=== PATIENT | male | born 1985 | race African-American/Black ===

== ENCOUNTER 2017-04-03 09:27 | Inpatient (IN) | payer OTHER ==
--- NOTE | 2017-04-03 12:11 | HP ---
Admission ROS [facility] Chief Complaint: REHAB TX FOR PCP AND ALCOHOL DEPENDENCE Allergies/Adverse Reactions: Allergies Allergy/AdvReac Type Severity Reaction Status Date / Time No Known Allergies Allergy Verified 04/03/17 11:31 History of Present Illness: 31 Y/O AA/MALE WITH A HX OF ALCOHOL AND PCP DEPENDENCE SEEKING REHAB TX. Exam Limitations: No Limitations - Ebola screening Have you traveled outside of the country in the last 21 days: No Have you had contact with anyone from an Ebola affected area: No Have you been sick,other than usual withdrawal symptoms: No Do you have a fever: No - Review of Systems Constitutional: No Symptoms Reported EENT: reports: Tearing, Nose Congestion Respiratory: reports: No Symptoms reported Cardiac: reports: No Symptoms Reported GI: reports: No Symptoms Reported : reports: No Symptoms Reported Musculoskeletal: reports: No Symptoms Reported Integumentary: reports: No Symptoms Reported Neuro: reports: Headache, Seizure (LAST EPISODE AT 9 YRS OLD.) Endocrine: reports: No Symptoms Reported Hematology: reports: No Symptoms Reported Psychiatric: reports: Orientated x3 Other Systems: Reviewed and Negative Patient History - Patient Medical History Hx Anemia: No Hx Asthma: No Hx Chronic Obstructive Pulmonary Disease (COPD): No Hx Cardiac Disorders: No Hx Hypertension: No Hx Hypercholesterolemia: No HX Cerebrovascular Accident: No Hx Seizures: Yes (as a child-last episode at age 9) Hx Diabetes: No Hx Gastrointestinal Disorders: No Hx Genitourinary Disorders: No Hx Sexually Transmitted Disorders: No Hx Renal Disease (ESRD): No Hx Thyroid Disease: No Hx Human Immunodeficiency Virus (HIV): No (NEGATIVE HX) Hx Hepatitis C: No Hx Depression: No Hx Suicide Attempt: No (DENIES) Hx Schizophrenia: No - Patient Surgical History Past Surgical History: No Hx Neurologic Surgery: No Hx Cataract Extraction: No Hx Cardiac Surgery: No Hx Lung Surgery: No Hx Breast Surgery: No Hx Breast Biopsy: No Hx Abdominal Surgery: No Hx Appendectomy: No Hx Cholecystectomy: No Hx Genitourinary Surgery: No Hx Orthopedic Surgery: No Anesthesia Reaction: No - PPD History Previous Implant?: Yes Documented Results: Negative w/o proof Implanted On Prior [facility] Admission?: No PPD to be Administered?: Yes - Reproductive History Patient is a Female of Child Bearing Age (11 -55 yrs old): No (MALE) - Smoking Cessation Smoking history: Current every day smoker Have you smoked in the past 12 months: Yes Aproximately how many cigarettes per day: 5 Hx Chewing Tobacco Use: No Initiated information on smoking cessation: Yes 'Breaking Loose' booklet given: 04/03/17 - Substance & Tx. History Hx Alcohol Use: Yes (BEER) Hx Substance Use: Yes (PCP) Substance Use Type: Alcohol Hx Substance Use Treatment: Yes ([facility]) - Substances Abused PCP Route: Smoking Frequency: 1-2 times per week Amount used: $20 Age of first use: 18 Date of Last Use: 03/25/17 Alcohol-beer Route: Oral Frequency: 1-2 times per week Amount used: 2 (24 oz.) Age of first use: 13 Date of Last Use: 03/27/17 Family Disease History - Family Disease History Family Disease History: Other: Father (HTN), Mother (LUPUS;PNEUMONIA-) Admission Physical Exam [facility] - Vital Signs Vital Signs: Vital Signs - 24 hr 04/03/17 04/03/17 10:11 11:26 Temperature 98.3 F 97.6 F Pulse Rate 108 H 62 Respiratory 18 20 Rate Blood Pressure 145/64 159/94 - Physical General Appearance: Yes: No Apparent Distress, Thin, Anxious HEENTM: Yes: EOMI, Normocephalic, ADRIEN, Pharynx Normal Respiratory: Yes: Chest Non-Tender, Lungs Clear, Normal Breath Sounds, No Respiratory Distress Neck: Yes: No masses,lesions,Nodules, Supple, Trachea in good position Breast: Yes: Breast Exam Deferred Cardiology: Yes: Regular Rhythm, S1, S2, Tachycardia Abdominal: Yes: Normal Bowel Sounds, Non Tender, Flat, Soft Genitourinary: Yes: Other (N/C) Back: Yes: Within Normal Limits Musculoskeletal: Yes: full range of Motion, Gait Steady Extremities: Yes: Normal Range of Motion, Non-Tender Neurological: Yes: psychic reader II-XII NML intact, Fully Oriented, Alert, Motor Strength 5/5 Integumentary: Yes: Dry, Warm Lymphatic: Yes: Within Normal Limits Cleared for Admission [facility] - Detox or Rehab Claeared for Rehab Admission: Yes [facility] Breath Alcohol Content Breath Alcohol Content: 0 Urine Pregancy Test - Result Urine Test Results: Negative- NO Line Present Urine Drug Screen - Results Drug Screen Negative: No Urine Drug Screen Results: THC-Marijuana, YANETH-Cocaine, OPI-Opiates, BZO- Benzodiazepines Inpatient Rehab Admission - Initial Determination Are CD services needed?: Yes Free of communicable disease: Yes Not in need of hospitalization: Yes - Rehab Admission Criteria Patient is meeting Inpatient Rehab admission criteria:: Yes
[2017-04-03] MEDS ORDERED: MAG HYDROX/AL HYDROX/SIMETH 30 ML UNIT-DOSE CUP PO PRN (12:12)
[2017-04-03] MEDS ORDERED: MENTHOL/PHENOL 1 EACH UD MM PRN (12:12)
[2017-04-03] MEDS ORDERED: ACETAMINOPHEN 325 MG TABLET (FP) PO PRN (12:12)
[2017-04-03] MEDS ORDERED: NICOTINE POLACRILEX 2 MG GUM BUC PRN (12:12)
[2017-04-03] MEDS ORDERED: IBUPROFEN 400 MG TABLET (FP) PO PRN (12:12)
[2017-04-03] MEDS ORDERED: MAGNESIUM HYDROX 2400MG/30ML ORAL SUSPENSION 30 ML CUP PO PRN (12:12)
[2017-04-03] MEDS ORDERED: guaiFENesin/D-METHORPHAN HB 10 ML UNIT-DOSE CUPS PO PRN (12:12)
[2017-04-03] MEDS ORDERED: MAGNESIUM CITRATE 300 ML BOTTLE PO PRN (12:12)
[2017-04-03] MEDS ORDERED: LOPERAMIDE HCL 2 MG CAPSULE PO PRN (12:12)
[2017-04-03] MEDS ORDERED: P-EPHED 60MG/TRIPROLIDI 2.5MG TABLET PO PRN (12:12)
[2017-04-03 12:13] VITALS: BMI 19.6
[2017-04-03 13:50] LABS: HEMATOCRIT 42.4 % (35.4-49); HEMOGLOBIN 13.6 GM/dL (11.7-16.9); MCH 30.4 pg (25.7-33.7); MEAN CELL VOLUME 95.1 fl (80-96); MEAN PLT VOLUME 7.6 fl (7.5-11.1); PLATELET COUNT 264 K/MM3 (134-434); RBC 4.46 M/mm3 (4.00-5.60); RDW 14.1 % (11.9-15.9); WHITE BLOOD COUNT 12.6 K/mm3 (4.0-10.0)
[2017-04-03 14:08] LABS: ALBUMIN 4.2 g/dl (3.4-5.0); ANION GAP 9 (8-16); BLOOD UREA NITROGEN 12 mg/dL (7-18); CHLORIDE 101 mmol/L (98-107); CO2 27 mmol/L (21-32); GLUCOSE,RANDOM 66 mg/dL (74-106); POTASSIUM 4.4 mmol/L (3.5-5.1); SODIUM 137 mmol/L (136-145)
[2017-04-03 14:17] LABS: ALK PHOS 94 U/L (45-117); BILIRUBIN,TOTAL 0.3 mg/dL (0.2-1.0); CREATININE 0.8 mg/dL (0.7-1.3); SGOT/AST 14 U/L (15-37); SGPT/ALT 20 U/L (12-78); TOT PROT 7.3 g/dl (6.4-8.2)
[2017-04-03 15:10] LABS: SICKLE CELL SCREEN NEGATIVE (NEGATIVE)
[2017-04-03] MEDS: NICOTINE 14 MG/24 HOURS TOPICAL PATCH TD SCH (19:51)
[2017-04-03] MEDS ORDERED: COLLOIDAL OATMEAL 1 BAR EACH TP PRN (20:27)
--- NOTE | 2017-04-03 20:28 | PN ---
[facility] Progress Note Note: RECEIVED NURSE CALL THAT THE PATIENT WANTS AVEENO SOAP
[2017-04-03 20:59] LABS: URINE APPEARANCE CLEAR; URINE BILIRUBIN NEGATIVE (NEGATIVE); URINE BLOOD NEGATIVE (NEGATIVE); URINE COLOR YELLOW; URINE GLUCOSE (UA) NEGATIVE (NEGATIVE); URINE KETONE NEGATIVE (NEGATIVE); URINE LEUK ESTERASE NEGATIVE (NEGATIVE); URINE NITRITE NEGATIVE (NEGATIVE); URINE PROTEIN NEGATIVE (NEGATIVE); URINE UROBILINOGEN NEGATIVE mg/dL (0.2-1.0)
[2017-04-03] MEDS: THIAMINE HCL 100 MG TABLET (FP) PO SCH (21:44)
[2017-04-04] MEDS ORDERED: TUBERCULIN PPD 5 TU/0.1ML VIAL ID ONE (06:14)
[2017-04-04] MEDS: PRENATAL VITAMINS W/ FOLIC ACID TABLET (FP) PO SCH (10:23)
[2017-04-04] MEDS: NICOTINE 14 MG/24 HOURS TOPICAL PATCH TD SCH (10:24)
[2017-04-04] MEDS ORDERED: AMMONIUM LACTATE 12% LOTION 225 GM BOTTLE TP PRN (10:57)
--- NOTE | 2017-04-04 12:41 | HP ---
Psychiatrist Admission - Data Date of interview: 04/04/17 Admission source: [facility] Identifying data: This is the first 5N inpatient rehabilitation admission for this 31 year old single AA male unemployed and supported by [facility], residing with his fiance in [place]. Medical History: had seizure when he was a child, smokes cigarettes 5 a day. Psychiatric History: Patient denies history of psychiatric treatment. Physical/Sexual Abuse/Trauma History: Patient denies history of sexual, physical and verbal abuse. Vital Signs: Vital Signs - 24 hr 04/03/17 04/04/17 04/04/17 17:20 00:47 03:30 Temperature 97.9 F Pulse Rate 108 H Respiratory 18 16 16 Rate Blood Pressure 133/80 04/04/17 07:18 Temperature 97.9 F Pulse Rate 80 Respiratory 18 Rate Blood Pressure 112/84 Allergies/Adverse Reactions: Allergies Allergy/AdvReac Type Severity Reaction Status Date / Time No Known Allergies Allergy Verified 04/03/17 11:31 Date of last physical exam: 04/03/17 Concur with the findings of this exam: Yes - Substance Abuse/Tx History Hx Alcohol Use: Yes (age at first use 13, ,drinks beer 2-24 oz 1-2 times a week) Hx Substance Use: Yes (PCP< age at first use 18, $20 1-2 times a week) Hx Substance Use Treatment: Yes Mental Status Exam - Mental Status Exam Alert and Oriented to: Time, Place, Person Cognitive Function: Good Patient Appearance: Well Groomed Mood: Hopeful Affect: Appropriate, Mood Congruent Patient Behavior: Appropriate, Cooperative Speech Pattern: Clear, Appropriate Voice Loudness: Normal Thought Process: Intact, Goal Oriented Thought Disorder: Not Present Hallucinations: Denies Suicidal Ideation: Denies Homicidal Ideation: Denies Insight/Judgement: Fair Sleep: Fair Appetite: Fair Muscle strength/Tone: Normal Gait/Station: Normal Psychiatric Findings - Problem List ([place] 1, 2,3) (1) Alcohol dependence Current Visit: Yes Status: Acute (2) PCP dependence Current Visit: Yes Status: Chronic - Initial Treatment Plan Initial Treatment Plan: will monitor progress as needed.
[2017-04-04] MEDS: THIAMINE HCL 100 MG TABLET (FP) PO SCH (21:36)
[2017-04-05 07:10] VITALS: TEMP 97.7
[2017-04-05] MEDS: NICOTINE 14 MG/24 HOURS TOPICAL PATCH TD SCH (10:25)
[2017-04-05] MEDS: PRENATAL VITAMINS W/ FOLIC ACID TABLET (FP) PO SCH (10:25)
--- NOTE | 2017-04-05 11:32 | EKG ---
Test Reason : Blood Pressure : / mmHG Vent. Rate : 084 BPM Atrial Rate : 084 BPM P-R Int : 158 ms QRS Dur : 094 ms QT Int : 354 ms P-R-T Axes : 000 116 131 degrees QTc Int : 418 ms LIMB LEAD REVERSAL NORMAL SINUS RHYTHM NO PREVIOUS ECGS AVAILABLE RECOMMEND REPEAT TRACING Confirmed by MARISELA KIM, SHAQ ([id number]) on 04/05/2017 11:31:29 AM Referred By: Confirmed By:SHAQ ANTONIO MD
[2017-04-05] MEDS: THIAMINE HCL 100 MG TABLET (FP) PO SCH (21:40)
[2017-04-06 07:19] VITALS: BP 115/80; PULSE 82
[2017-04-06] MEDS: PRENATAL VITAMINS W/ FOLIC ACID TABLET (FP) PO SCH (09:59)
[2017-04-06] MEDS: NICOTINE 14 MG/24 HOURS TOPICAL PATCH TD SCH (09:59)
== END 2017-04-06 17:25 | disposition left against medical advice (07) | DRG 770 ==
LOC: YASAS 09:27 → Y5N 12:20
PROVIDERS: ADMIT Psychiatry & Neurology Psychiatry; ATTEND Psychiatry & Neurology Psychiatry
PROC: HZ42ZZZ Group Counseling for Substance Abuse Treatment, Cognitive-Behavioral (ICD-10-PCS; principal; 2017-04-03)
DX: F10.20 Alcohol dependence, uncomplicated (principal); F16.20 Hallucinogen dependence, uncomplicated; F17.210 Nicotine dependence, cigarettes, uncomplicated; Z86.69 Personal history of other diseases of the nervous system and sense organs
CPT/HCPCS: 36415; 80053; 81003; 85027; 85660; 86593; 87389; 93005; 93010

== ENCOUNTER 2018-12-29 20:46 | Emergency (ER) | payer OTHER ==
[2018-12-29 21:27] VITALS: BP 120/76; PULSE 98; TEMP 97.9; BMI 23.6
--- NOTE | 2018-12-29 21:46 | PDOC ---
Attending Attestation - Resident Resident Name: Marcel Brown - ED Attending Attestation I have performed the following: I have examined & evaluated the patient, The case was reviewed & discussed with the resident, I agree w/resident's findings & plan - HPI HPI: 12/29/18 21:52 see resident hpi - Physicial Exam PE: 12/29/18 21:52 agree with resident exam - Medical Decision Making 12/29/18 21:52 33 yo male s/p fall with admitted ETOH use plan for CT head/facial bones, c spine likely d/c pending imaging
[2018-12-29] MEDS ORDERED: ACETAMINOPHEN 500 MG TABLET (FP) PO ONE (21:50)
--- NOTE | 2018-12-29 21:51 | PDOC ---
History of Present Illness - General Chief Complaint: Injury Stated Complaint: INTOX Time Seen by Provider: 12/29/18 21:37 - History of Present Illness Initial Comments: 12/29/18 21:51 Mr. Mcgee is a 33 yo male w/ pmh of PCP and alcohol abuse who presents s/p fall earlier this evening. Patient reports he "had a few beers" and tripped while going down the stairs. Patient currently complaining of facial pain where he hit the floor. No other complaints at this time. The patient denies chest pain, shortness of breath, headache and dizziness. Denies fever, chills, nausea, vomit, diarrhea and constipation. Denies dysuria, frequency, urgency and hematuria. Past History - Past Medical History Allergies/Adverse Reactions: Allergies Allergy/AdvReac Type Severity Reaction Status Date / Time No Known Allergies Allergy Verified 12/29/18 21:27 Home Medications: Ambulatory Orders NK [No Known Home Medication] 11/07/15 Anemia: No Asthma: No Cardiac Disorders: No CVA: No COPD: No Diabetes: No GI Disorders: No Disorders: No HTN: No Hypercholesterolemia: No Kidney Stones: No Seizures: Yes (as a child-last episode at age 9) Thyroid Disease: No - Surgical History Abdominal Surgery: No Appendectomy: No Cardiac Surgery: No Cholecystectomy: No Lung Surgery: No Neurologic Surgery: No Orthopedic Surgery: No - Reproductive History Testicular Surgery: No - Suicide/Smoking/Psychosocial Hx Smoking History: Current every day smoker Have you smoked in the past 12 months: Yes Number of Cigarettes Smoked Daily: 5 Information on smoking cessation initiated: No 'Breaking Loose' booklet given: 04/03/17 Hx Alcohol Use: Yes (age at first use 13, ,drinks beer 2-24 oz 1-2 times a week) Drug/Substance Use Hx: Yes (PCP< age at first use 18, $20 1-2 times a week) Substance Use Type: Alcohol Hx Substance Use Treatment: Yes Review of Systems - Review of Systems Comments:: 12/29/18 21:53 GENERAL/CONSTITUTIONAL: No fever or chills. No weakness. HEAD, EYES, EARS, NOSE AND THROAT: +Forehead pain at impact site. No change in vision. No ear pain or discharge. No sore throat. CARDIOVASCULAR: No chest pain or shortness of breath RESPIRATORY: No cough, wheezing, or hemoptysis. GASTROINTESTINAL: No nausea, vomiting, diarrhea or constipation. GENITOURINARY: No dysuria, frequency, or change in urination. MUSCULOSKELETAL: No joint or muscle swelling or pain. No neck or back pain. SKIN: No rash NEUROLOGIC: No headache, vertigo, loss of consciousness, or change in strength/ sensation. ENDOCRINE: No increased thirst. No abnormal weight change HEMATOLOGIC/LYMPHATIC: No anemia, easy bleeding, or history of blood clots. ALLERGIC/IMMUNOLOGIC: No hives or skin allergy. *Physical Exam - Vital Signs Last Vital Signs Temp Pulse Resp BP Pulse Ox 97.9 F 98 H 17 120/76 97 12/29/18 21:22 12/29/18 21:22 12/29/18 21:22 12/29/18 21:22 12/29/18 21:22 - Physical Exam Comments: 12/29/18 21:53 GENERAL: Awake, alert, and fully oriented, in no acute distress HEAD: +Small approx. 1cm laceration to R forehead w/ associated swelling. EYES: PERRLA, EOMI, sclera anicteric, conjunctiva clear ENT: Auricles normal inspection, hearing grossly normal, nares patent, oropharynx clear without exudates. Moist mucosa NECK: Normal ROM, supple, no lymphadenopathy, JVD, or masses LUNGS: No distress, speaks full sentences, clear to auscultation bilaterally HEART: Regular rate and rhythm, normal S1 and S2, no murmurs, rubs or gallops, peripheral pulses normal and equal bilaterally. ABDOMEN: Soft, nontender, normoactive bowel sounds. No guarding, no rebound. No masses EXTREMITIES: Normal inspection, Normal range of motion, no edema. No clubbing or cyanosis. NEUROLOGICAL: Cranial nerves II through XII grossly intact. Normal speech, normal gait, no focal sensorimotor deficits SKIN: Warm, Dry, normal turgor, no rashes or lesions noted. Procedures - Laceration/Wound Repair Right Upper Anterior Face Wound Length: to 2.5 cm Wound Explored: clean Wound's Depth, Shape: superficial Irrigated w/ Saline: Yes Betadine Prep: No Anesthesia: 1% Lidocaine Amount of Anesthetic (ccs): 1 Wound Debrided: minimal Wound Repaired With: Sutures Suture Size/Type: 5:0 Number of Sutures: 3 Layer Closure: No ED Treatment Course - RADIOLOGY Radiology Studies Ordered: Category Date Time Status CERVICAL SPINE CT W/O CONTR [CT] Stat CT Scan 12/29/18 21:[address] W/O CONTRAST [CT] Stat CT Scan 12/29/18 21:[address] WITHOUT CONTRAST [CT] Stat CT Scan 12/29/18 21:41 Ordered Medical Decision Making - Medical Decision Making 12/30/18 01:10 Mr. Mcgee is a 33 yo male w/ pmh as described who presents s/p mechanical fall earlier this evening. Patient evaluate for sequelae of fall w/ Head/C-spine/ Facial CTs. CT evaluation negative for acute process. Patient laceration cleaned /closed as above w/out difficulty. No concern for acute process at this time. Discharging patient to home for further outpatient evaluation. Patient will return in 5-7 days for suture removal. *DC/Admit/Observation/Transfer Diagnosis at time of Disposition: Laceration Fall Qualifiers: Encounter type: initial encounter Qualified Code(s): W19.XXXA - Unspecified fall, initial encounter - Discharge Dispostion Disposition: HOME - Referrals Referrals: Cecelia Nguyen MD [Primary Care Provider] - - Patient Instructions Printed Discharge Instructions: DI for Suture Removal Additional Instructions: You were evaluated today in the ER after your fall. We performed CT evaluation which was negative and closed your laceration with 3 5-0 sutures. Please return in 5-7 days for suture removal. You may take over the counter motrin or tylenol for pain control per package instructions. Return to ER immediately if any increase in pain, fever, chills, or other concerning symptoms. - Post Discharge Activity
[2018-12-29] MEDS ORDERED: ACETAMINOPHEN 325 MG TABLET (FP) ONE (21:59)
== END 2018-12-30 01:36 | disposition home or self-care (01) ==
LOC: JER 20:46
PROC: 0HQ1XZZ Repair Face Skin, External Approach (ICD-10-PCS; principal; 2018-12-29)
DX: S01.81XA Laceration without foreign body of other part of head, initial encounter (principal); F10.10 Alcohol abuse, uncomplicated; F11.90 Opioid use, unspecified, uncomplicated; W18.39XA Other fall on same level, initial encounter; Y93.89 Activity, other specified; Y92.89 Other specified places as the place of occurrence of the external cause; R56.9 Unspecified convulsions; F17.210 Nicotine dependence, cigarettes, uncomplicated
CPT/HCPCS: 70450-TC; 70486-TC; 72125-TC; 99282-25